=== PATIENT | male | born 1965 | race Caucasian/White ===

== ENCOUNTER 2018-03-11 09:58 | Emergency (ER) | payer BC ==
[2018-03-11] MEDS ORDERED: Aspirin 325 MG TAB ONE (10:15)
[2018-03-11] MEDS ORDERED: Ketorolac Tromethamine 30 MG/ML VIAL ONE (10:15)
[2018-03-11 10:25] LABS: #Basophils 0.1 thou/uL (0.0-0.2); #Eosinphils 0.4 thou/uL (0.0-0.7); #Lymphocytes 3.2 thou/uL (1.20-3.40); #Monocytes 1.1 thou/uL (0.11-0.59); #Neutrophils 8.1 thou/uL (1.40-6.50); %Basophils 0.8 % (0.0-1.0); %Eosinophils 3.5 % (0.0-10.0); %Lymphocytes 24.5 % (21.0-51.0); %Monocytes 8.5 % (0.0-10.0); %Neutrophils 62.8 % (42.0-75.0); Hemoglobin 16.7 g/dL (14.0-18.0); Mean Corpuscular HGB CONC 34.3 g/dL (32.0-36.0); Mean Corpuscular Hemoglobin 30.6 pg (27.0-31.0); Mean Corpuscular Volume 89.2 fL (78.0-98.0); Mean Platelet Volume 9.8 fL (7.4-10.4); Platelet Count 324 thou/uL (130-400); RBC Distribution Width 11.8 % (11.5-14.5); Red Blood Cell (RBC) Count 5.46 mill/uL (4.70-6.10); White Blood Cell (WBC) Count 12.9 thou/uL (4.8-10.8)
[2018-03-11 10:42] LABS: ALT (SGPT) 24 U/L (8-55); AST (SGOT) 19 U/L (5-34); Albumin 4.5 g/dL (3.5-5.0); Alkaline Phosphatase 96 U/L (40-150); Anion Gap 15 mmol/L (10-20); BUN (Urea Nitrogen) 7 mg/dL (8.4-25.7); Bilirubin, Total 0.5 mg/dL (0.2-1.2); Calc. Creatinine Clearance 0 mL/min (70-130); Calcium 9.8 mg/dL (7.8-10.44); Carbon Dioxide 27 mmol/L (22-29); Chloride 99 mmol/L (98-107); Estimated GFR-MDRD Greater than 90; Globulin 3.3 g/dL (2.4-3.5); Glucose 405 mg/dL (70-105); Potassium 4.3 mmol/L (3.5-5.1); Protein, Total 7.8 g/dL (6.0-8.3); Sodium 137 mmol/L (136-145)
--- NOTE | 2018-03-11 10:58 | RAD ---
CHEST 1 VIEW: History Chest pain. COMPARISON: 01/05/2013. FINDINGS: Cardiac silhouette is magnified by projection. Pulmonary vasculature remains slightly engorged, alicia lar in appearance to the prior study from 5 years ago. No lobar consolidation or evidence of pneumot horax. Right lateral costophrenic angle is excluded from the image. IMPRESSION: No active cardiopulmonary abnormalities are demonstrated. POS: [facility]
[2018-03-11] MEDS ORDERED: Insulin Regular 300 UNITS/3 ML VIAL ONE (11:09)
[2018-03-11] MEDS ORDERED: Morphine 4 MG/ML VIAL ONE (11:09)
[2018-03-11] MEDS ORDERED: Ondansetron PF 4 MG/2 ML Vial ONE (11:09)
--- NOTE | 2018-03-11 11:28 | CT ---
CT ARTERIOGRAM CHEST WITH IV CONTRAST AND 3D MIP IMAGING: HISTORY: Chest pain. Dyspnea. COMPARISON: 08/31/2013. FINDINGS: There is good contrast opacification of pulmonary arteries and thoracic aorta with normal branching o f the great vessels. Scattered areas of minimal atelectasis involve each lung. No lobar consolidati on. No pleural fluid or mediastinal adenopathy. IMPRESSION: No CT evidence of pulmonary embolus. POS: [facility]
[2018-03-11] MEDS ORDERED: ISOVUE-370 76%-LOCM 1 ML ONE (16:17)
--- NOTE | 2018-03-17 05:37 | PQF ---
[facility] POST DISCHARGE CLINICAL DOCUMENTATION IMPROVEMENT CLARIFICATION FORM l Todays Date: 03/14/2018 l Patients Name Bennett Ngo l l Admit Date 03/11/2018 l Disch Date 03/11/2018 Medical Services Manager Name Crys Mcleandanish Email: [email or web address] Cell: [phone] To be completed by Medical Services Manager: Present Clinical Indicators - Signs / Symptoms Results and Location in Medical Record [ ] Documentation of: [ ] [ ] Documentation of: [ ] [ ] Documentation of: [ ] [ ] Documentation of: [ ] [ ] Risks [ ] [ ] [ ] Treatment [ ] BRONCHITIS QUERY FOR SPECIFICTY OF ACUTE OR CHRONIC BRONCHITIS [ ] [ ] To be completed by Physician: DR. Aniyah MD, [facility] The documentation in this patients record requires clarification to ensure coding compliance and accuracy. Check the appropriate box and include in your discharge summary. [ ] [ ] [ ] [ ] Please check this box if this does not apply to this patient [ ] Unable to determine [ ] Other diagnosis: Review the following information and exercise your independent professional judgment in responding to the clarification. Based upon the clinical findings, risk factors, and treatment, please clarify if you are treating one of the above probable or suspected diagnoses. Physician Signature: Date Time MTDD
--- NOTE | 2018-03-22 21:25 | EKG ---
Test Reason : Blood Pressure : / mmHG Vent. Rate : 098 BPM Atrial Rate : 098 BPM P-R Int : 160 ms QRS Dur : 126 ms QT Int : 394 ms P-R-T Axes : 066 041 032 degrees QTc Int : 503 ms Normal sinus rhythm Right bundle branch block Possible Inferior infarct , age undetermined Abnormal ECG Confirmed by SUBHA STEINBERG ([id number]), editor in chief NICO CHRISTIAN ([id number]) on 03/22/2018 9:25:22 PM Referred By: Confirmed By:SUBHA STEINBERG
== END 2018-03-11 12:28 | disposition home or self-care (01) ==
LOC: ERS 09:58
DX: J40 Bronchitis, not specified as acute or chronic (principal); E11.9 Type 2 diabetes mellitus without complications; E78.5 Hyperlipidemia, unspecified; E66.9 Obesity, unspecified; I10 Essential (primary) hypertension; F41.9 Anxiety disorder, unspecified; F17.210 Nicotine dependence, cigarettes, uncomplicated; Z79.4 Long term (current) use of insulin; Z79.899 Other long term (current) drug therapy
CPT/HCPCS: 36416; 71045; 71275; 80053; 84484; 85025; 85379; 93005; 96374; 96375; J1815; J1885; J2270; J2405; J7620

== ENCOUNTER 2023-02-18 00:21 | Inpatient (IN) | payer BC ==
[2023-02-18] MEDS ORDERED: dilTIAZem 125 MG/25 ML SDV ONE (00:29)
[2023-02-18] MEDS ORDERED: dilTIAZem 25 MG/5 ML VIAL ONE (00:29)
[2023-02-18] MEDS ORDERED: Albuterol 2.5 MG/0.5 ML NEB ONE (00:38)
[2023-02-18] MEDS ORDERED: LORazepam 2 MG/ML SYR.(CARPUJECT) ONE (00:43)
[2023-02-18] MEDS ORDERED: Cefepime 2 GM VIAL ONE (00:53)
[2023-02-18] MEDS ORDERED: Sodium Chloride 0.9% 100 ML ONE (00:53)
[2023-02-18] MEDS ORDERED: Digoxin 0.5 MG/2 ML AMP ONE (00:53)
[2023-02-18 00:55] LABS: #Basophils 0.1 thou/uL (0.0-0.2); #Eosinphils 0.4 thou/uL (0.0-0.7); #Monocytes 1.3 thou/uL (0.11-0.59); #Neutrophils 9.1 thou/uL (1.40-6.50); %Basophils 0.8 % (0.0-1.0); %Eosinophils 2.4 % (0.0-10.0); %Lymphocytes 24.1 % (21.0-51.0); %Monocytes 8.8 % (0.0-10.0); %Neutrophils 63.6 % (42.0-75.0); Hematocrit 43.6 % (42.0-52.0); Hemoglobin 14.3 g/dL (14.0-18.0); Mean Corpuscular HGB CONC 32.8 g/dL (32.0-36.0); Mean Corpuscular Hemoglobin 29.9 pg (27.0-31.0); Mean Platelet Volume 11.5 fL (7.4-10.4); Platelet Count 275 10x3/uL (130-400); Red Blood Cell (RBC) Count 4.79 mill/uL (4.70-6.10); White Blood Cell (WBC) Count 14.4 10x3/uL (4.8-10.8)
[2023-02-18 01:01] LABS: Actual Bicarbonate (HCO3a) 24.7 mEq/L (22-28); Analyzer IN Cardio ER; Base Excess (BEa) -1.3 mEq/L (-2.0 to +3.0); CO2 Tension 46.1 mmHg (35.0-45.0); Calcium, Ionized (arterial) 1.17 mmol/L (1.12-1.30); Carboxyhemoglobin (COHb) 1.5 gm% (0.0-3.0); Hematocrit-ABG 43 % (42.0-52.0); Hemoglobin (Hb) 14.5 g/dL (14.0-18.0); Potassium - ABG Lab 3.68 mmol/L (3.70-5.30); pH, Arterial 7.346 (7.35-7.45)
[2023-02-18] MEDS ORDERED: Amiodarone 150 MG/3 ML VIAL ONE (01:03)
[2023-02-18 01:06] LABS: O2 Tension (PaO2), arterial 41.6 mmHg (> 80.0); Puncture Site LR
[2023-02-18 01:09] LABS: INR-International Normal Ratio 1.2; Prothrombin Time 15.2 sec (12.0-14.7)
[2023-02-18 01:10] LABS: PTT 31.8 sec (22.9-36.1)
[2023-02-18 01:22] LABS: Troponin I Less than 0.010 ng/mL (< 0.028)
[2023-02-18 01:25] LABS: ALT (SGPT) 17 U/L (8-55); AST (SGOT) 23 U/L (5-34); Albumin 4.2 g/dL (3.5-5.0); Alkaline Phosphatase 103 U/L (40-110); Anion Gap 16 mmol/L (10-20); BUN (Urea Nitrogen) 13 mg/dL (8.4-25.7); Bilirubin, Total 1.7 mg/dL (0.2-1.2); Calc. Creatinine Clearance 0 mL/min (70-130); Calcium 9.5 mg/dL (7.8-10.44); Carbon Dioxide 23 mmol/L (22-29); Chloride 100 mmol/L (98-107); Estimated GFR 89; Globulin 3.6 g/dL (2.4-3.5); Glucose 260 mg/dL (70-105); Lipase 21 U/L (8-78); Magnesium 2.8 mg/dL (1.6-2.6); Potassium 4.1 mmol/L (3.5-5.1); Protein, Total 7.8 g/dL (6.0-8.3); Sodium 135 mmol/L (136-145)
[2023-02-18] MEDS ORDERED: PROPOFOL 20 ML ONE ×2 (01:44→02:24)
[2023-02-18] MEDS ORDERED: Metoprolol Tartrate 5 MG/5 ML VIAL ONE (02:34)
[2023-02-18] MEDS ORDERED: Acetaminophen 325 MG TAB PO PRN (02:56)
[2023-02-18] MEDS ORDERED: Ondansetron PF 4 MG/2 ML Vial IVP PRN (02:56)
[2023-02-18] MEDS ORDERED: Glucagon 1 MG/ML KIT IM PRN (02:57)
[2023-02-18] MEDS ORDERED: Dextrose 5% in Water 1,000 ML IV PRN (02:57)
[2023-02-18] MEDS ORDERED: Dextrose 50% Abboject 50 ML SYRINGE SLOW IVP PRN (02:57)
[2023-02-18] MEDS ORDERED: traMADol HCl 50 MG TAB PO SCH (04:15)
[2023-02-18] MEDS ORDERED: Vancomycin 1 GM/200 ML (FROZEN) BAG ONE (04:31)
[2023-02-18 04:43] LABS: SARS-CoV-2 NAA Rapid Test Not Detected (NotDetected)
[2023-02-18] MEDS ORDERED: Furosemide 40 MG/4 ML VIAL SLOW IVP SCH (04:45)
[2023-02-18] MEDS ORDERED: Ipratropium Bromide 2.5 ml Neb NEB PRN (04:56)
[2023-02-18] MEDS: Doxycycline 100 MG CAP PO SCH ×2 (05:35→17:27)
[2023-02-18] MEDS: methylPREDNISolone Sod Succ 40 MG VIAL IVP SCH ×3 (05:36→21:46)
[2023-02-18 05:41] VITALS: BMI 36.6
[2023-02-18] MEDS: HumaLOG 300 UNITS/3 ML VIAL SC PRN ×4 (06:32→21:46)
[2023-02-18] MEDS: Amiodarone 450 MG, Admixture Fee 1 EACH in Dextrose 5% in Water 250 ML IVPB SCH ×2 (07:43→21:47)
[2023-02-18] MEDS: Ipratropium/Albuterol 3 ML NEB NEB SCH ×5 (08:08→22:02)
[2023-02-18] MEDS: Mometasone 200 MCG/Formoterol 5 MCG 120 PUFF INHALER INH SCH ×2 (08:15→18:14)
[2023-02-18] MEDS ORDERED: Insulin Glargine 30 UNITS/0.3 ML VIAL SC SCH (09:00)
[2023-02-18] MEDS: Apixaban 5 MG TAB PO SCH ×2 (09:35→21:46)
[2023-02-18] MEDS: Metoprolol Tartrate 50 MG TAB PO SCH ×2 (09:35→21:46)
[2023-02-18] MEDS ORDERED: Iopamidol-370 76% 500 ML MDV (1 ML CHARGE) ONE (14:05)
[2023-02-18] MEDS: Furosemide 40 MG/4 ML VIAL SLOW IVP SCH (14:39)
[2023-02-18] MEDS: Lorazepam 0.5 MG TAB PO SCH (21:46)
[2023-02-18] MEDS: Insulin Glargine 30 UNITS/0.3 ML VIAL SC SCH (21:46)
[2023-02-19] MEDS: Ipratropium/Albuterol 3 ML NEB NEB SCH ×3 (01:51→10:45)
[2023-02-19 04:43] LABS: #Monocytes 1.2 thou/uL (0.11-0.59); #Neutrophils 19.4 thou/uL (1.40-6.50); %Basophils 0.2 % (0.0-1.0); %Lymphocytes 8.1 % (21.0-51.0); %Monocytes 5.2 % (0.0-10.0); %Neutrophils 85.5 % (42.0-75.0); Hemoglobin 13.2 g/dL (14.0-18.0); Mean Corpuscular Hemoglobin 29.8 pg (27.0-31.0); Mean Corpuscular Volume 90.3 fl (78.0-98.0); Mean Platelet Volume 11.9 fL (7.4-10.4); Platelet Count 274 10x3/uL (130-400); RBC Distribution Width 13.2 % (11.5-14.5); Red Blood Cell (RBC) Count 4.43 mill/uL (4.70-6.10); White Blood Cell (WBC) Count 22.7 10x3/uL (4.8-10.8)
[2023-02-19 05:12] LABS: Anion Gap 16 mmol/L (10-20); BUN (Urea Nitrogen) 35 mg/dL (8.4-25.7); Calc. Creatinine Clearance 91 mL/min (70-130); Calcium 9.5 mg/dL (7.8-10.44); Carbon Dioxide 21 mmol/L (22-29); Chloride 96 mmol/L (98-107); Estimated GFR 53; Glucose 306 mg/dL (70-105); Potassium 4.6 mmol/L (3.5-5.1); Sodium 128 mmol/L (136-145)
[2023-02-19] MEDS: methylPREDNISolone Sod Succ 40 MG VIAL IVP SCH ×2 (05:30→14:29)
[2023-02-19] MEDS: Furosemide 40 MG/4 ML VIAL SLOW IVP SCH ×2 (05:30→14:29)
[2023-02-19] MEDS: HumaLOG 300 UNITS/3 ML VIAL SC PRN ×4 (05:30→20:31)
[2023-02-19] MEDS: Doxycycline 100 MG CAP PO SCH ×2 (05:30→18:02)
[2023-02-19] MEDS: Mometasone 200 MCG/Formoterol 5 MCG 120 PUFF INHALER INH SCH ×2 (07:12→19:15)
[2023-02-19] MEDS: Metoprolol Tartrate 50 MG TAB PO SCH (09:02)
[2023-02-19] MEDS: Apixaban 5 MG TAB PO SCH ×2 (09:02→20:30)
[2023-02-19] MEDS: Insulin Glargine 30 UNITS/0.3 ML VIAL SC SCH ×2 (09:02→20:30)
[2023-02-19] MEDS: Amiodarone 200 MG TAB PO SCH ×3 (11:31→20:30)
[2023-02-19 12:50] LABS: %Basophils 0.1 % (0.0-1.0); %Lymphocytes 7.4 % (21.0-51.0); %Monocytes 4.6 % (0.0-10.0); %Neutrophils 87.2 % (42.0-75.0); Hematocrit 37.5 % (42.0-52.0); Hemoglobin 12.5 g/dL (14.0-18.0); Mean Corpuscular HGB CONC 33.3 g/dL (32.0-36.0); Mean Corpuscular Hemoglobin 30.3 pg (27.0-31.0); Mean Platelet Volume 11.9 fL (7.4-10.4); Platelet Count 272 10x3/uL (130-400); RBC Distribution Width 13.2 % (11.5-14.5); Red Blood Cell (RBC) Count 4.12 mill/uL (4.70-6.10); White Blood Cell (WBC) Count 21.8 10x3/uL (4.8-10.8)
[2023-02-19 13:06] LABS: Anion Gap 15 mmol/L (10-20); BUN (Urea Nitrogen) 41 mg/dL (8.4-25.7); Calc. Creatinine Clearance 96 mL/min (70-130); Calcium 9.2 mg/dL (7.8-10.44); Carbon Dioxide 19 mmol/L (22-29); Chloride 96 mmol/L (98-107); Estimated GFR 56; Potassium 4.6 mmol/L (3.5-5.1); Sodium 125 mmol/L (136-145)
[2023-02-19] MEDS ORDERED: Ipratropium/Albuterol 3 ML NEB NEB PRN (13:18)
[2023-02-19 13:19] LABS: Glucose 410 mg/dL (70-105)
[2023-02-19] MEDS: Lorazepam 0.5 MG TAB PO SCH (20:30)
[2023-02-20 04:15] LABS: #Monocytes 1.3 thou/uL (0.11-0.59); %Basophils 0.1 % (0.0-1.0); %Lymphocytes 11.1 % (21.0-51.0); %Monocytes 6.1 % (0.0-10.0); %Neutrophils 81.8 % (42.0-75.0); Hematocrit 37.2 % (42.0-52.0); Hemoglobin 12.4 g/dL (14.0-18.0); Mean Corpuscular HGB CONC 33.3 g/dL (32.0-36.0); Mean Corpuscular Hemoglobin 29.8 pg (27.0-31.0); Mean Corpuscular Volume 89.4 fl (78.0-98.0); Mean Platelet Volume 11.7 fL (7.4-10.4); Platelet Count 280 10x3/uL (130-400); RBC Distribution Width 13.2 % (11.5-14.5); Red Blood Cell (RBC) Count 4.16 mill/uL (4.70-6.10); White Blood Cell (WBC) Count 20.7 10x3/uL (4.8-10.8)
[2023-02-20 04:23] LABS: Hemoglobin A1c 8.3 % (4.0-6.0)
[2023-02-20] MEDS: Doxycycline 100 MG CAP PO SCH (04:29)
[2023-02-20 04:42] LABS: Anion Gap 13 mmol/L (10-20); BUN (Urea Nitrogen) 43 mg/dL (8.4-25.7); Calc. Creatinine Clearance 100 mL/min (70-130); Calcium 9.5 mg/dL (7.8-10.44); Carbon Dioxide 23 mmol/L (22-29); Chloride 99 mmol/L (98-107); Estimated GFR 59; Glucose 272 mg/dL (70-105); Potassium 4.3 mmol/L (3.5-5.1); Sodium 131 mmol/L (136-145)
[2023-02-20] MEDS: Furosemide 40 MG/4 ML VIAL SLOW IVP SCH ×2 (05:51→14:34)
[2023-02-20] MEDS: HumaLOG 300 UNITS/3 ML VIAL SC PRN (05:51)
[2023-02-20] MEDS: Mometasone 200 MCG/Formoterol 5 MCG 120 PUFF INHALER INH SCH (06:44)
[2023-02-20] MEDS ORDERED: predniSONE 20 MG TAB PO SCH (08:00)
[2023-02-20] MEDS: Apixaban 5 MG TAB PO SCH (08:49)
[2023-02-20] MEDS: Amiodarone 200 MG TAB PO SCH ×2 (08:50→14:34)
[2023-02-20] MEDS: Insulin Glargine 30 UNITS/0.3 ML VIAL SC SCH (08:50)
[2023-02-20] MEDS ORDERED: Nicotine 21 MG PATCH TD SCH (09:00)
[2023-02-20 11:00] VITALS: TEMP 97.8
[2023-02-20 11:54] VITALS: BP 149/84
[2023-02-21] MEDS ORDERED: FLU VACC QS2023-24(6MOS UP)/PF 60 MCG/0.5 ML SYRINGE IM ONE (09:00)
== END 2023-02-20 15:35 | disposition home or self-care (01) | DRG 189 ==
LOC: ERS 00:21 → ERHOLD 03:03 → CCU 05:25 → 2NO 21:10
PROVIDERS: ADMIT Internal Medicine; ATTEND Internal Medicine
PROC: 5A2204Z Restoration of Cardiac Rhythm, Single (ICD-10-PCS; principal; 2023-02-18)
PROC: 4A133R1 Monitoring of Arterial Saturation, Peripheral, Percutaneous Approach (ICD-10-PCS; 2023-02-18)
PROC: 5A09357 Assistance with Respiratory Ventilation, Less than 24 Consecutive Hours, Continuous Positive Airway Pressure (ICD-10-PCS; 2023-02-18)
DX: J96.21 Acute and chronic respiratory failure with hypoxia (principal); J44.1 Chronic obstructive pulmonary disease with (acute) exacerbation; E87.1 Hypo-osmolality and hyponatremia; I48.19 Other persistent atrial fibrillation; E78.5 Hyperlipidemia, unspecified; E11.22 Type 2 diabetes mellitus with diabetic chronic kidney disease; G47.33 Obstructive sleep apnea (adult) (pediatric); I11.0 Hypertensive heart disease with heart failure; I50.9 Heart failure, unspecified; G25.81 Restless legs syndrome; R91.1 Solitary pulmonary nodule; E11.9 Type 2 diabetes mellitus without complications; F17.210 Nicotine dependence, cigarettes, uncomplicated; D72.829 Elevated white blood cell count, unspecified; Z79.84 Long term (current) use of oral hypoglycemic drugs; Z90.89 Acquired absence of other organs; Z79.899 Other long term (current) drug therapy; Z90.49 Acquired absence of other specified parts of digestive tract; Z98.890 Other specified postprocedural states; Z95.0 Presence of cardiac pacemaker; Z11.52 Encounter for screening for COVID-19
CPT/HCPCS: 36415; 36416; 71045; 71275; 80048; 80053; 82805; 83036; 83605; 83690; 83735; 83880; 84443; 84484; 85025; 85610; 85730; 87040; 92960; 93005; 93306; 94640; 94660; 96365; 96367; 96375; 96376; 99156; 99157; 99292; J0282; J0283; J0692; J1160; J1815; J1940; J2060; J2704; J2920; J3370-JW; J3490; J7070; J7512; J7611; J7620; Q9967